=== PATIENT | male | born 1975 | race African-American/Black ===

== ENCOUNTER 2018-10-27 21:11 | Emergency (ER) | payer BC, OTHER ==
[~2018-10-27] VITALS: Ht 180.3 cm; Wt 85.0 kg
[2018-10-27] MEDS ORDERED: SODIUM CHLORIDE 0.9% 1,000 ML IV ONE (22:26)
[2018-10-27] MEDS ORDERED: ONDANSETRON HCL 4MG/2ML INJ IV STA (22:26)
[2018-10-27] MEDS ORDERED: METHYLPREDNISOLONE SOD SUCC 125 MG/2 ML VIAL IV ONE (22:30)
[2018-10-27 23:36] LABS: CHLORIDE 101 mEq/L (98-107)
[2018-10-27 23:43] LABS: BASOPHILS % 0.1 % (0.0-2.0); EOSINOPHILS % 0.1 % (0.0-5.0); HEMATOCRIT. 51.2 % (42.0-52.0); HEMOGLOBIN. 17.1 g/dL (14.0-18.0); LYMPHOCYTES % 7.3 % (20.0-50.0); MEAN CORPUSCULAR HEMOGLOBIN 29.2 pg (28.0-32.0); MEAN CORPUSCULAR VOLUME 87.7 fL (80.0-94.0); MEAN PLATELET VOLUME 8.9 fl (7.4-10.4); MONOCYTES % 4.7 % (2.0-8.0); NEUTROPHILS % 87.8 % (40.0-76.0); PLATELET 210 x1000/uL (130-400); RED BLOOD CELL COUNT 5.84 mill/uL (4.7-6.1); RED CELL DISTRIBUTION WIDTH 13.1 % (11.6-14.6)
[2018-10-28 01:20] VITALS: BP 108/54
== END 2018-10-28 01:21 | disposition home or self-care (01) ==
LOC: ER 21:11
DX: T61.771A Other fish poisoning, accidental (unintentional), initial encounter (principal); K52.1 Toxic gastroenteritis and colitis; Y92.89 Other specified places as the place of occurrence of the external cause
CPT/HCPCS: 36415; 80053; 85025; 96361; 96374; 96375; 99283; J2405; J2930; J7030; Z7610